=== PATIENT | male | born 1950 | race Caucasian/White ===

== ENCOUNTER 2019-02-09 07:37 | Day surgery (SDC) | payer MEDICARE, OTHER ==
[~2019-02-09] VITALS: Ht 185.4 cm; Wt 89.5 kg
[~2019-02-09 07:37] MED LIST: ADVIL200 MG PO; ALLEGRA180 MG PO; BENADRYL25 M2 PO; HYZAAR 50-12.1 UDTAB PO; NASONEX SPRAY; TYLENOL 500MG500 MG PO; VITAMIN B12 1541 TAB PO; VITAMIND3 5000 PO
[2019-02-09] MEDS ORDERED: VITAMIN B COMPL1 T16 PO (07:54)
[2019-02-09] MEDS ORDERED: MULTI VITAMINS1 TAB PO (07:54)
[2019-02-09 08:18] VITALS: BP 134/88; PULSE 88; TEMP 97.1
[2019-02-09 09:55] VITALS: BP 145/95; PULSE 84; TEMP 97.6
--- NOTE | 2019-02-09 09:55 | NUR ---
Patient arrives back to [facility] alert, denies pain or nausea. Patient ambulates from cart to chair with standby assist and without any complications. Patient monitor applied, vitals stable. Patient's spouse at bedside.
--- NOTE | 2019-02-09 10:00 | NUR ---
Dr Kenyon into see patient and patient's spouse to go over procedure results. Patient given muffin, applesauce and soda.
[2019-02-09 10:10] VITALS: BP 133/104; PULSE 80
--- NOTE | 2019-02-09 10:15 | NUR ---
Patient tolerated food and drink well, denies having any pain or nausea. Vitals stable.
[2019-02-09 10:25] VITALS: BP 130/83; PULSE 83
--- NOTE | 2019-02-09 10:25 | NUR ---
Dismissal instructions gone over with patient and patient's spouse. Both verbalize understanding and all questions answered.
--- NOTE | 2019-02-09 10:30 | NUR ---
Patient discharged to patient enterance via ambulation. Patient and spouse leave thanking staff for services.
== END 2019-02-09 10:30 | disposition home or self-care (01) ==
LOC: SDCO 07:37
DX: Z12.11 Encounter for screening for malignant neoplasm of colon (principal); Z86.010 Personal history of colon polyps; D12.3 Benign neoplasm of transverse colon; K63.5 Polyp of colon; K55.20 Angiodysplasia of colon without hemorrhage; K64.0 First degree hemorrhoids; K57.30 Diverticulosis of large intestine without perforation or abscess without bleeding; I10 Essential (primary) hypertension; Z85.46 Personal history of malignant neoplasm of prostate; Z79.899 Other long term (current) drug therapy; Z88.8 Allergy status to other drugs, medicaments and biological substances
CPT/HCPCS: J2250; J3010; J7030